=== PATIENT | female | born 1955 | race Caucasian/White ===

== ENCOUNTER 2017-01-24 14:10 | Emergency (ER) | payer OTHER ==
[2017-01-24 14:23] VITALS: TEMP 98.3; BMI 27.3
--- NOTE | 2017-01-24 14:53 | PDOC ---
History of Present Illness - General Chief Complaint: Injury Stated Complaint: FALL Time Seen by Provider: 01/24/17 14:18 History Source: Patient Exam Limitations: Language Barrier - History of Present Illness Initial Comments: 01/24/17 14:42 The patient is a 61F with a PMH of DM who presents to the ED after sustaining a fall from 4 feet. The patient came in via EMS and does not speak much [place]i. Nurse helped with translation. The patient denied any CP, SOB, lightheadedness, palpitations, nausea, vomiting before/during/after her fall. She states that it was purely mechanical. She is complaining of L rib pain. Past History - Past Medical History Allergies/Adverse Reactions: Allergies Allergy/AdvReac Type Severity Reaction Status Date / Time No Known Allergies Allergy Verified 01/24/17 14:15 Home Medications: Ambulatory Orders Insulin (Levemir) [Levemir Vial] 10 unit SQ DAILY 01/24/17 Insulin (Novolog) [Novolog] 10 units SQ HS 01/24/17 Oxycodone HCl/Acetaminophen [Percocet 5-325 mg Tablet] 1 tab PO PRN #30 tablet MDD 8 01/24/17 COPD: No Diabetes: Yes - Suicide/Smoking/Psychosocial Hx Smoking History: Never smoked Review of Systems - Review of Systems Able to Perform ROS?: Yes Comments:: 01/24/17 15:12 GENERAL/CONSTITUTIONAL: No fever or chills. No weakness. HEAD, EYES, EARS, NOSE AND THROAT: No change in vision. No ear pain or discharge. No sore throat. GASTROINTESTINAL: No nausea, vomiting, diarrhea, constipation, or abdominal pain. GENITOURINARY: No dysuria, frequency, hematuria, or change in urination. CARDIOVASCULAR: No chest pain, palpitations, or lightheadedness. RESPIRATORY: No cough, wheezing, shortness of breath, or hemoptysis. MUSCULOSKELETAL: Positive for L rib pain. No joint or muscle swelling. No neck or back pain. SKIN: No rash or lesions. NEUROLOGIC: No headache, numbness, tingling, weakness, loss of consciousness, or change in strength/sensation. ENDOCRINE: No increased thirst. No abnormal weight change. HEMATOLOGIC/LYMPHATIC: No anemia, easy bleeding, or history of blood clots. ALLERGIC/IMMUNOLOGIC: No hives or skin allergy. Is the patient limited [place]i proficient: No *Physical Exam - Vital Signs Last Vital Signs Temp Pulse Resp BP Pulse Ox 98.3 F 80 20 140/79 97 01/24/17 14:15 01/24/17 14:15 01/24/17 14:15 01/24/17 14:15 01/24/17 14:15 - Physical Exam Comments: 01/24/17 15:12 GENERAL: Well developed, well nourished. Awake and alert. No acute distress. HEENT: Normocephalic, atraumatic. Hearing grossly normal. Moist mucous membranes. PERRLA, EOMI. No conjunctival pallor. Sclera are non-icteric. Oropharynx is clear. NECK: Supple. Full ROM. No JVD. Carotid pulses 2+ and symmetric, without bruits. No thyromegaly. No lymphadenopathy. CARDIOVASCULAR: Regular rate and rhythm. No murmurs, rubs, or gallops. Distal pulses are 2+ and symmetric. PULMONARY: No evidence of respiratory distress. Lungs clear to auscultation bilaterally. No wheezing, rales or rhonchi. ABDOMINAL: Soft. Non-tender. Non-distended. No rebound or guarding. No organomegaly. Normoactive bowel sounds. GENITOURINARY: No CVA tenderness bilaterally. MUSCULOSKELETAL: Tenderness to palpation over L ribs inferiorly. Normal range of motion at all joints. No bony deformities. EXTREMITIES: No cyanosis. No clubbing. No edema. No calf tenderness. SKIN: Warm and dry. Normal capillary refill. No rashes. No jaundice. NEUROLOGICAL: Alert, awake, appropriate. Cranial nerves 2-12 intact. Normal speech. Gait is normal without ataxia. PSYCHIATRIC: Cooperative. Good eye contact. Appropriate mood and affect. ED Treatment Course - RADIOLOGY Radiology Studies Ordered: Category Date Time Status CHEST X-RAY PORTABLE* [RAD] Stat Radiology 01/24/17 14:21 Ordered Medical Decision Making - Medical Decision Making 01/24/17 15:13 The patient is a 61F with a PMH of DM who presented after a mechanical fall. CXR shows possible fracture, will discuss with radiologist. Will give pain control and supportive care. 01/24/17 17:36 Patient states her pain is a little better. Will d/c with percocet and PCP follow up. *DC/Admit/Observation/Transfer Diagnosis at time of Disposition: Fracture - Discharge Dispostion Disposition: HOME Condition at time of disposition: Stable Admit: No - Prescriptions Prescriptions: Oxycodone HCl/Acetaminophen [Percocet 5-325 mg Tablet] 1 tab PO PRN #30 tablet MDD 8 - Referrals Referrals: Bin Rivera MD [Primary Care Provider] - - Patient Instructions Printed Discharge Instructions: Rib Fracture, DI for Rib Fracture Additional Instructions: Please return to the ER if symptoms persist, worsen, or new symptoms arise. Please follow up with your primary care physician in 2-3 days. Please return to the ER if you have any signs or symptoms of chest pain, shortness of breath, uncontrollable fever, chills, nausea, vomiting, numbness, tingling, or weakness in any part of your body, changes in vision, or slurred speech. Please take your medications as prescribed. Por favor regrese a la jag de emergencias si los sntomas persisten, empeoran o surgen nuevos sntomas. Por favor, lucas un seguimiento con [place] mdico de atencin primaria en 2-3 mohan. Por favor regrese a la jag de emergencia si tiene signos o sntomas de dolor en el pecho, dificultad para respirar, fiebre incontrolable, escalofros, n useas, vmitos, entumecimiento, hormigueo o debilidad en cualquier parte de [place] cuerpo, cambios en la visin o dificultad para hablar. Por favor tome sivan medicamentos segn lo recetado. Print Language: DUTCH - Post Discharge Activity
--- NOTE | 2017-01-24 15:50 | PDOC ---
Attending Attestation - Resident Resident Name: [email or web address] - ED Attending Attestation I have performed the following: I have examined & evaluated the patient, The case was reviewed & discussed with the resident, I agree w/resident's findings & plan, Exceptions are as noted - HPI HPI: 01/24/17 15:46 61-year-old female with mechanical fall off 4 foot ladder striking left side, no head injury or loss of consciousness, brought in by EMS complaining of isolated left rib pain. Was ambulatory after the fall without leg pain, denies any headache or vision change or nausea/vomiting. Was given morphine prior to arrival. - Physicial Exam PE: 01/24/17 15:47 Vital signs stable, respiratory rate normal with normal O2 sat on room air Alert but in distress secondary to left rib pain Trachea is midline, lungs are clear bilaterally with symmetric chest rise, there is focal tenderness along the axillary line in the eighth or ninth rib, no crepitus or bruising. Abdomen is benign without bruising or hepatosplenomegaly Neurologically intact with full range of motion of all joints, no focal bony pathology - Medical Decision Making 01/24/17 15:49 Patient seen and evaluated with the resident. I agree with the overall evaluation, assessment, and management with the following summary of visit: 61-year-old female with mechanical fall and left rib injury, suspicion for rib fracture. Rule out pneumothorax, no evidence of other injury. Neurologically intact and hemodynamically stable. Chest x-ray shows no pneumothorax but on my preliminary review one slightly displaced rib fracture Pain control, reassess, and dispo accordingly
[2017-01-24 18:30] VITALS: BP 132/62; PULSE 72
== END 2017-01-24 18:26 | disposition home or self-care (01) ==
LOC: JER 14:10
DX: S22.32XA Fracture of one rib, left side, initial encounter for closed fracture (principal); W17.89XA Other fall from one level to another, initial encounter; Y93.89 Activity, other specified; Y92.038 Other place in apartment as the place of occurrence of the external cause; Y99.8 Other external cause status; E11.9 Type 2 diabetes mellitus without complications; Z79.4 Long term (current) use of insulin
CPT/HCPCS: 71010-TC; 99283-25